=== PATIENT | female | born 1980 ===

== ENCOUNTER 2020-05-16 08:00 | Inpatient (IN) | payer MEDICAID ==
[2020-05-11 11:25] LABS: ABSOLUTE EOSINOPHILS # (AUTO) 0.1 10^3/uL (0.0-0.6); ABSOLUTE LYMPHOCYTES (AUTO) 1.1 10^3/uL (0.5-4.7); ABSOLUTE MONOCYTES (AUTO) 0.3 10^3/uL (0.1-1.4); BASOPHILS % (AUTO) 0.1 % (0-2); EOSINOPHILS % (AUTO) 0.9 % (0-6); HEMATOCRIT 33.4 % (36.0-47.0); HEMOGLOBIN 11.1 g/dL (12.0-15.5); LYMPHOCYTES % (AUTO) 17.3 % (13-45); MEAN CORPUSCULAR HEMOGLOBIN 27.9 pg (27.0-33.4); MEAN CORPUSCULAR HGB CONC 33.2 g/dL (32.0-36.0); MEAN CORPUSCULAR VOLUME 84 fl (80-97); MONOCYTES % (AUTO) 4.4 % (3-13); PLATELET COUNT 200 10^3/uL (150-450); RED BLOOD COUNT 3.97 10^6/uL (3.72-5.28); RED CELL DISTRIBUTION WIDTH 15.1 % (11.5-14.0); SEGMENTED NEUTROPHILS % (AUTO) 77.3 % (42-78); TOTAL CELLS COUNTED % (AUTO) 100 %; WHITE BLOOD COUNT 6.5 10^3/uL (4.0-10.5)
[2020-05-11 11:43] LABS: APPEARANCE,URINE SLIGHTLY-CLOUDY; BILIRUBIN,URINE NEGATIVE (NEGATIVE); COLOR,URINE YELLOW; GLUCOSE, URINE NEGATIVE (NEGATIVE); KETONES,URINE NEGATIVE (NEGATIVE); LEUKOCYTE ESTERASE,URINE NEGATIVE (NEGATIVE); NITRITE,URINE NEGATIVE (NEGATIVE); PROTEIN,URINE NEGATIVE (NEGATIVE); UROBILINOGEN,URINE NEGATIVE mg/dL (<2.0)
[2020-05-11 12:11] LABS: URINE AMPHETAMINES SCREEN NEGATIVE; URINE BARBITURATES SCREEN NEGATIVE; URINE BENZODIAZEPINES SCREEN NEGATIVE; URINE COCAINE SCREEN NEGATIVE; URINE MARIJUANA (THC) SCREEN NEGATIVE; URINE METHADONE SCREEN NEGATIVE; URINE PHENCYCLIDINE SCREEN NEGATIVE
[2020-05-11 12:58] LABS: CHLAM PCR NOT DETECTED (NOT DETECT)
[~2020-05-16 08:00] MED LIST: CEFAZOLIN 2 GM/D5W RTU 2 GM/50 ML RTUPB IV PRN; CEFAZOLIN 2 GM/D5W RTU 2 GM/50 ML RTUPB IV SCH; LACTATED RINGERS 1000 ML IV PRN; RINGERS SOLUTION,LACTATED 1,000 ML IV PRN
[2020-05-16] MEDS ORDERED: CITRIC ACID/SODIUM CITRATE ORAL SOLN 15 ML UDCUP ONE (09:22)
[2020-05-16] MEDS ORDERED: OXYTOCIN 10 UNIT/ML VIAL ONE (09:22)
[2020-05-16] MEDS ORDERED: MIDAZOLAM 2 MG/2 ML INJ ONE (09:22)
[2020-05-16] MEDS ORDERED: PHENYLEPHRINE HCL INJ/PF 10 MG/1 ML SDV ONE (09:22)
[2020-05-16] MEDS ORDERED: ONDANSETRON HCL INJ/PF 4 MG/2 ML SDV ONE (09:22)
[2020-05-16] MEDS ORDERED: MEPERIDINE HCL/PF INJ 25 MG/1 ML DISP.SYRIN IV PRN (10:09)
[2020-05-16] MEDS ORDERED: FENTANYL CITRATE INJ/PF 100 MCG/2 ML AMPUL IV PRN ×3 (10:09)
[2020-05-16] MEDS ORDERED: MORPHINE SULFATE 10 MG/ML INJ IV PRN (10:09)
[2020-05-16] MEDS ORDERED: PROMETHAZINE HCL INJ 25 MG/1 ML VIAL IV PRN ×2 (10:09→10:23)
[2020-05-16] MEDS ORDERED: DIPHENHYDRAMINE HCL 50 MG/ML VIAL IV PRN (10:09)
[2020-05-16] MEDS ORDERED: ACETAMINOPHEN 1,000 MG/100 ML RTUPB IV PRN (10:23)
[2020-05-16] MEDS ORDERED: RINGERS SOLUTION,LACTATED 1,000 ML IV PRN (10:23)
[2020-05-16] MEDS ORDERED: ACETAMINOPHEN 325 MG TABLET PO PRN (10:23)
[2020-05-16] MEDS ORDERED: OXYTOCIN/0.9 % SODIUM CHLORIDE 30 UNIT/500 ML RTUINJ IV PRN (10:23)
[2020-05-16] MEDS ORDERED: MORPHINE SULFATE 10 MG/ML INJ IM PRN (10:23)
[2020-05-16] MEDS ORDERED: MEASLES,MUMPS&RUBELLA VACC/PF 0.5 ML VIAL SUBCUT PRN (10:23)
[2020-05-16] MEDS ORDERED: DIPH/PERTUSS(ACELL)/TETANUS VAC/PF 0.5 ML SYR (>=10YO) IM PRN (10:23)
--- NOTE | 2020-05-16 10:29 | Operative Report ---
Operative Report DATE OF SURGERY: 05/16/20 PREOPERATIVE DIAGNOSIS: IUP at term prior section desire for steriliza tion POSTOPERATIVE DIAGNOSIS: Same OPERATION: Repeat low transverse delivery of viable infant and bilateral tubal occlusion SURGEON: NANCY RODRIGUEZ ANESTHESIA: Spinal TISSUE REMOVED OR ALTERED: Placenta ESTIMATED BLOOD LOSS: Approximately 900 cc PROCEDURE: The patient was taken to the operating room where spinal anesthesia was obtained and found to be adequate. She was then prepped and draped in the normal sterile fashion and placed in the dorsal supine position with a leftward tilt. A Pfannenstiel skin incision was then made and carried through to the underlying layers of the fascia with the scalpel. The fascia was incised in the midline and the incision extended laterally with the Carrington scissors. The superior aspect of the fascial incision was then grasped with Sheridan clamps elevated and the underlying rectus muscles dissected off bluntly. Attention was then turned to the inferior aspect of the fascial incision which in a similar fashion was grasped, tented up with Raphael clamps, and the rectus muscles dissected off bluntly. The rectus muscles were then in the midline and the peritoneum at the amount identified and entered bluntly. The peritoneal incision was then extended superiorly and inferiorly with good visualization of the bladder. [The bladder blade was inserted and the vesicouterine peritoneum identified grasped with Argentine pickups and entered sharply with the Metzenbaum scissors. His incision was then extended laterally with the Metzenbaum scissors and a bladder flap created digitally. The bladder blade was then reinserted and the lower uterine segment incised in a transverse fashion with the scalpel. The uterine incision was then extended bluntly. The bladder blade was removed and the 's head was delivered from cephalic presentation atraumatically. The nose and mouth were suctioned and the cord doubly clamped and cut. And the was handed off to waiting pediatricians. The placenta was then delivered manully and the uterus exteriorized and cleared of all clots and debris. The uterine incision was then repaired with 1-0 Vicryl in a running locked fashion. A second layer of the same suture was used to obtain hemostasis via imbrication of the initial layer. Right fallopian tube was occluded in the proximal portion using Filshie clip. The procedure was repeated on the left in similar fashion. Both tubes identified to the fimbria prior to and after occlusion. The uterus was returned to the patient's abdomen. The gutters were cleared of all clots and debris. All operative sites were noted to be hemostatic. The fascia was reapproximated with 0 Vicryl in a running fashion from each lateral edge to the midline. The patient tolerated the procedure well. Sponge lap needle and instrument counts are correct -2. 2 g of Ancef were given prior to skin incision. The patient was taken to the recovery area awake and in stable condition.
[2020-05-16] MEDS ORDERED: PROMETHAZINE HCL INJ 25 MG/1 ML VIAL ONE (11:41)
[2020-05-16] MEDS ORDERED: FENTANYL CITRATE INJ/PF 100 MCG/2 ML AMPUL ONE (11:42)
[2020-05-16] MEDS ORDERED: OXYTOCIN/0.9 % SODIUM CHLORIDE 30 UNIT/500 ML RTUINJ ONE (11:42)
[2020-05-16] MEDS: KETOROLAC TROMETHAMINE INJ/PF 30 MG/1 ML SDV IV SCH ×2 (13:32→21:51)
[2020-05-16] MEDS: DOCUSATE SODIUM 100 MG CAPSULE PO SCH (17:49)
[2020-05-16] MEDS: OXYCODONE-ACETAMINOPHEN 5-325 MG TABLET PO PRN ×3 (17:57→21:58)
[2020-05-17] MEDS: OXYCODONE-ACETAMINOPHEN 5-325 MG TABLET PO PRN ×3 (04:57→19:53)
[2020-05-17] MEDS: IBUPROFEN 800 MG TABLET PO SCH ×4 (06:25→23:21)
[2020-05-17] MEDS: SIMETHICONE 80 MG TAB.CHEW PO PRN ×2 (06:26→14:46)
[2020-05-17 08:00] LABS: HEMATOCRIT 33.7 % (36.0-47.0); HEMOGLOBIN 11.1 g/dL (12.0-15.5); MEAN CORPUSCULAR HEMOGLOBIN 28.1 pg (27.0-33.4); MEAN CORPUSCULAR HGB CONC 32.9 g/dL (32.0-36.0); MEAN CORPUSCULAR VOLUME 85 fl (80-97); PLATELET COUNT 183 10^3/uL (150-450); RED BLOOD COUNT 3.96 10^6/uL (3.72-5.28); RED CELL DISTRIBUTION WIDTH 15.2 % (11.5-14.0); WHITE BLOOD COUNT 6.9 10^3/uL (4.0-10.5)
[2020-05-17] MEDS: PRENATAL VITAMIN W DHA CAPSULE PO SCH (09:24)
[2020-05-17] MEDS: DOCUSATE SODIUM 100 MG CAPSULE PO SCH ×2 (09:24→18:01)
--- NOTE | 2020-05-17 14:42 | PDOC PROGRESS REPORT ---
Subjective-OB Progress Note for:: 05/17/20 Subjective: reports bleeding slowing. c/o pain in upper abdomen and not passing gas. RN notified Physical Exam (OB) Vital Signs: Temp Pulse Resp BP Pulse Ox 98.0 F 62 18 109/60 97 05/17/20 11:07 05/17/20 11:07 05/17/20 11:07 05/17/20 11:07 05/17/20 11:07 Intake & Output 05/16/20 05/17/20 05/18/20 06:59 06:59 06:59 Intake Total 380 200 Output Total 1400 Balance -1020 200 - Dressing Removed: Yes Incision: Open, Well Approximated Closure Type: Surgical Glue - Bilateral Tubal Ligation Dressing Removed: Yes Site: Well Approximated - Maternal Morbidity 59. Maternal Morbidity (serious complications experinced by the mother associated with labor and delivery: None of the above - Lochia Lochia Amount: Scant < 10 ml Lochia Color: Rubra/Red - Abdomen Description: Tender, Soft Hernia Present: No Bowel Sounds: Hypoactive Fundal Description: Firm, Midline Fundal Height: u/u - u/2 - Abdominal Distension: Distended Tenderness: Tender - Extremities Lower extremities: Cesario's sign - neg Calf: Other - edema Objective-Diagnostic Laboratory: 05/17/20 06:21 05/17/20 06:21 WBC 6.9 RBC 3.96 Hgb 11.1 L Hct 33.7 L MCV 85 MCH 28.1 MCHC 32.9 RDW 15.2 H Plt Count 183 Assessment and Plan(PN) - Time Spent with Patient Time with patient: Less than 15 minutes - Disposition Anticipated Discharge Disposition: Home, Self Care Anticipated Discharge Timeframe: within 48 hours
[2020-05-18] MEDS: OXYCODONE-ACETAMINOPHEN 5-325 MG TABLET PO PRN (04:25)
[2020-05-18] MEDS: IBUPROFEN 800 MG TABLET PO SCH (06:28)
[2020-05-18] MEDS: PRENATAL VITAMIN W DHA CAPSULE PO SCH (09:49)
[2020-05-18] MEDS: DOCUSATE SODIUM 100 MG CAPSULE PO SCH (09:49)
--- NOTE | 2020-05-18 10:13 | PDOC DISCHARGE SUMMARY ---
Impression - Admit/DC Date/PCP Admission Date/Primary Care Provider: 05/16/20 08:00 NANCY RODRIGUEZ MD Discharge Date: 05/18/20 - POD #2, doing well, desires to go home today. O+ - Discharge Diagnosis (1) S/P repeat low transverse Is this a current diagnosis for this admission?: Yes (2) Normal course Is this a current diagnosis for this admission?: Yes - Additional Information Resuscitation Status: Full Code Discharge Diet: As Tolerated, Regular Discharge Activity: Activity As Tolerated, No Driving, No Lifting Over 10 Pounds, Pelvic Rest Referrals: NANCY RODRIGUEZ MD [Primary Care Provider] - Prescriptions: Ibuprofen [Motrin 800 mg Tablet] 800 mg PO Q6 #60 tablet Oxycodone HCl/Acetaminophen [Percocet 5-325 mg Tablet] 2 tab PO Q4HP PRN #30 tablet PRN Reason: Pain Scale Of 4 Home Medications: 123/Iron/Folic/Omeg3s [One-A-Day 1 Dha Sfgl] 1 each PO DAILY 05/11/20 Ibuprofen [Motrin 800 mg Tablet] 800 mg PO Q6 #60 tablet 05/18/20 Oxycodone HCl/Acetaminophen [Percocet 5-325 mg Tablet] 2 tab PO Q4HP PRN #30 tablet 05/18/20 HPI Reason(s) for Admission: Ceasarean Section-Repeat, Tubal Ligation Hospital Course 59. Maternal Morbidity (serious complications experinced by the mother associated with labor and delivery: None of the above Results Laboratory Results: WBC 6.9 10^3/uL (4.0-10.5) 05/17/20 06:21 RBC 3.96 10^6/uL (3.72-5.28) 05/17/20 06:21 Hgb 11.1 g/dL (12.0-15.5) L 05/17/20 06:21 Hct 33.7 % (36.0-47.0) L 05/17/20 06:21 MCV 85 fl (80-97) 05/17/20 06:21 MCH 28.1 pg (27.0-33.4) 05/17/20 06:21 MCHC 32.9 g/dL (32.0-36.0) 05/17/20 06:21 RDW 15.2 % (11.5-14.0) H 05/17/20 06:21 Plt Count 183 10^3/uL (150-450) 05/17/20 06:21 Lymph % (Auto) 17.3 % (13-45) 05/11/20 10:20 Knox % (Auto) 4.4 % (3-13) 05/11/20 10:20 Eos % (Auto) 0.9 % (0-6) 05/11/20 10:20 Baso % (Auto) 0.1 % (0-2) 05/11/20 10:20 Absolute Neuts (auto) 5.0 10^3/uL (1.7-8.2) 05/11/20 10:20 Absolute Lymphs (auto) 1.1 10^3/uL (0.5-4.7) 05/11/20 10:20 Absolute Monos (auto) 0.3 10^3/uL (0.1-1.4) 05/11/20 10:20 Absolute Eos (auto) 0.1 10^3/uL (0.0-0.6) 05/11/20 10:20 Absolute Basos (auto) 0.0 10^3/uL (0.0-0.2) 05/11/20 10:20 Seg Neutrophils % 77.3 % (42-78) 05/11/20 10:20 Urine Color YELLOW 05/11/20 08:43 Urine Appearance SLIGHTLY-CLOUDY 05/11/20 08:43 Urine pH 6.0 (5.0-9.0) 05/11/20 08:43 Ur Specific Huntley 1.020 05/11/20 08:43 Urine Protein NEGATIVE mg/dL (NEGATIVE) 05/11/20 08:43 Urine Glucose (UA) NEGATIVE mg/dL (NEGATIVE) 05/11/20 08:43 Urine Ketones NEGATIVE mg/dL (NEGATIVE) 05/11/20 08:43 Urine Blood NEGATIVE (NEGATIVE) 05/11/20 08:43 Urine Nitrite NEGATIVE (NEGATIVE) 05/11/20 08:43 Urine Bilirubin NEGATIVE (NEGATIVE) 05/11/20 08:43 Urine Urobilinogen NEGATIVE mg/dL (<2.0) 05/11/20 08:43 Ur Leukocyte Esterase NEGATIVE (NEGATIVE) 12/04/20 08:43 Urine WBC (Auto) 1 /HPF 05/11/20 08:43 Urine RBC (Auto) 0 /HPF 05/11/20 08:43 Squamous Epi Cells Auto 3 /HPF 05/11/20 08:43 Urine Mucus (Auto) RARE /LPF 05/11/20 08:43 Urine Ascorbic Acid NEGATIVE (NEGATIVE) 05/11/20 08:43 Urine Opiates Screen NEGATIVE 05/11/20 10:21 Urine Methadone Screen NEGATIVE 05/11/20 10:21 Ur Barbiturates Screen NEGATIVE 05/11/20 10:21 Ur Phencyclidine Scrn NEGATIVE 05/11/20 10:21 Ur Amphetamines Screen NEGATIVE 05/11/20 10:21 U Benzodiazepines Scrn NEGATIVE 05/11/20 10:21 Urine Cocaine Screen NEGATIVE 05/11/20 10:21 U Marijuana (THC) Screen NEGATIVE 05/11/20 10:21 Chlamydia DNA (PCR) NOT DETECTED (NOT DETECT) 05/11/20 10:21 COVID-19 Source See comment 05/11/20 10:30 COVID-19 (KENZIE) Not Detected (Not Detect) 05/11/20 10:30 N.gonorrhoeae DNA (PCR) NOT DETECTED (NOT DETECT) 05/11/20 10:21 Blood Type O POSITIVE 05/14/20 10:24 Antibody Screen NEGATIVE 05/14/20 10:24 Plan Plan of Treatment: d/c home. F/up with [facility] for incsion check in one week Time Spent: Less than 30 Minutes
[2020-05-18 10:29] VITALS: BP 101/59
[2020-05-18] MEDS ORDERED: IBUPROFEN 800 MG TABLET PO SCH (12:00)
== END 2020-05-18 11:22 | disposition home or self-care (01) | DRG 785 ==
LOC: 2S 08:00
PROVIDERS: ADMIT Obstetrics & Gynecology Gynecology; ATTEND Obstetrics & Gynecology Gynecology
PROC: 10D00Z1 Extraction of Products of Conception, Low, Open Approach (ICD-10-PCS; principal; 2020-05-16)
PROC: 0UL70ZZ Occlusion of Bilateral Fallopian Tubes, Open Approach (ICD-10-PCS; 2020-05-16)
DX: O34.211 Maternal care for low transverse scar from previous cesarean delivery (principal); Z37.0 Single live birth; Z30.2 Encounter for sterilization; Z3A.39 39 weeks gestation of pregnancy; Z20.828 Contact with and (suspected) exposure to other viral communicable diseases
CPT/HCPCS: 1961; 36415; 59025; 80307; 81001; 85025; 85027; 86850; 86900; 86901; 87491; 87591; 87635; 94799; C9803; J0690; J1885; J2250; J2370; J2405; J2550; J2590; J3010; J3490